=== PATIENT | male | born 1990 | race Caucasian/White ===

== ENCOUNTER 2019-08-07 10:38 | Emergency (ER) | payer OTHER, SELFPAY ==
[2019-08-07 11:13] LABS: Bilirubin Negative (Negative); Blood, Urine Negative (Negative); Clarity Clear (Clear); Glucose, Urine (Dipstick) Negative (Negative); Leukocyte Negative (Negative); Nitrite Negative (Negative); Protein, Urine (Dipstick) Negative (Neg-Trace); Urobilinogen 0.2 mg/dL (Less than 2)
[2019-08-07] MEDS ORDERED: Lidocaine 1% PF 5 ML VIAL ONE (11:50)
[2019-08-07] MEDS ORDERED: metroNIDAZOLE 500 MG TAB ONE (11:50)
[2019-08-07] MEDS ORDERED: cefTRIAXone\\ROCEPHIN 250 MG VIAL ONE (11:50)
[2019-08-07] MEDS ORDERED: Azithromycin 250 MG TAB ONE (11:50)
[2019-08-09 21:04] LABS: Chlam.trachomatis by PCR,Urine Not Detected (NotDetected)
== END 2019-08-07 12:00 | disposition home or self-care (01) ==
LOC: SCSER 10:38
DX: N48.89 Other specified disorders of penis (principal); F17.210 Nicotine dependence, cigarettes, uncomplicated
CPT/HCPCS: 81003; 87491; 87591; 96372; 99283; J0696; J2001

== ENCOUNTER 2021-08-05 04:26 | Emergency (ER) | payer SELFPAY | END 2021-08-05 05:02 | disposition home or self-care (01) | LOC: ERS 04:26 | DX: S90.421A Blister (nonthermal), right great toe, initial encounter (principal); L60.0 Ingrowing nail; F17.210 Nicotine dependence, cigarettes, uncomplicated; X58.XXXA Exposure to other specified factors, initial encounter | CPT/HCPCS: 99281 ==

== ENCOUNTER 2021-09-06 12:13 | Inpatient (IN) | payer OTHER ==
[2021-09-06] MEDS ORDERED: Ondansetron PF 4 MG/2 ML Vial IVP PRN (12:52)
[2021-09-06] MEDS ORDERED: TETANUS AND DIPHTHERIA TOX/PF 0.5 ML DISP.SYRIN IM ONE (12:52)
[2021-09-06] MEDS ORDERED: Dextrose 50% Abboject 50 ML SYRINGE SLOW IVP PRN (12:52)
[2021-09-06] MEDS ORDERED: hydrALAZINE 20 MG/ML VIAL SLOW IVP PRN (12:52)
[2021-09-06] MEDS ORDERED: Dextrose 5% in Water 1,000 ML IV PRN (12:52)
[2021-09-06] MEDS ORDERED: traMADol HCl 50 MG TAB PO PRN (12:55)
[2021-09-06] MEDS ORDERED: Acetaminophen 325 MG TAB PO SCH (13:00)
[2021-09-06] MEDS: Morphine 4 MG/ML VIAL SLOW IVP PRN (15:25)
[2021-09-06] MEDS: Gabapentin 300 MG CAP PO SCH ×2 (15:35→19:37)
[2021-09-06] MEDS: Sodium Chloride 0.9% 1,000 ML IV SCH (15:36)
[2021-09-06] MEDS: Acetaminophen 500 MG TAB PO SCH ×2 (15:37→19:38)
[2021-09-06] MEDS: traMADol HCl 50 MG TAB PO SCH (19:39)
[2021-09-06] MEDS: Famotidine/PF 20 mg/2ml Vial SLOW IVP SCH (19:40)
[2021-09-06 20:02] LABS: SARS-CoV-2 NAA Rapid Test Not Detected (NotDetected)
[2021-09-07] MEDS: traMADol HCl 50 MG TAB PO SCH ×4 (02:34→17:49)
[2021-09-07] MEDS: Acetaminophen 500 MG TAB PO SCH ×4 (02:35→17:48)
[2021-09-07] MEDS: Sodium Chloride 0.9% 1,000 ML IV SCH (02:38)
[2021-09-07] MEDS: Morphine 4 MG/ML VIAL SLOW IVP PRN (03:43)
[2021-09-07 05:59] LABS: #Basophils 0.1 thou/uL (0.0-0.2); #Eosinphils 0.1 thou/uL (0.0-0.7); #Lymphocytes 1.6 thou/uL (1.20-3.40); #Monocytes 0.7 thou/uL (0.11-0.59); #Neutrophils 5.4 thou/uL (1.40-6.50); %Basophils 0.6 % (0.0-1.0); %Eosinophils 0.8 % (0.0-10.0); %Lymphocytes 20.6 % (21.0-51.0); %Monocytes 9.4 % (0.0-10.0); %Neutrophils 68.6 % (42.0-75.0); Hemoglobin 13.8 g/dL (14.0-18.0); Mean Corpuscular HGB CONC 33.6 g/dL (32.0-36.0); Mean Corpuscular Hemoglobin 31.6 pg (27.0-31.0); Mean Corpuscular Volume 93.9 fL (78.0-98.0); Mean Platelet Volume 7.6 fL (7.4-10.4); Platelet Count 182 thou/uL (130-400); RBC Distribution Width 13.4 % (11.5-14.5); Red Blood Cell (RBC) Count 4.36 mill/uL (4.70-6.10); White Blood Cell (WBC) Count 7.9 thou/uL (4.8-10.8)
[2021-09-07 06:10] LABS: Albumin 3.6 g/dL (3.5-5.0)
[2021-09-07 06:13] LABS: Protein, Total 6.2 g/dL (6.0-8.3)
[2021-09-07 06:15] LABS: Bilirubin, Total 0.5 mg/dL (0.2-1.2)
[2021-09-07 06:16] LABS: Alkaline Phosphatase 44 U/L (40-110); Phosphorus 3.6 mg/dL (2.3-4.7)
[2021-09-07 06:18] LABS: AST (SGOT) 106 U/L (5-34); Anion Gap 11 mmol/L (10-20); BUN (Urea Nitrogen) 9 mg/dL (8.9-20.6); Bilirubin, Direct 0.2 mg/dL (0.1-0.3); Calc. Creatinine Clearance 169 mL/min (70-130); Calcium 9.1 mg/dL (7.8-10.44); Carbon Dioxide 27 mmol/L (22-29); Chloride 106 mmol/L (98-107); Glucose 89 mg/dL (70-105); Magnesium 2.2 mg/dL (1.6-2.6); Potassium 4.6 mmol/L (3.5-5.1); Sodium 139 mmol/L (136-145)
[2021-09-07 06:19] LABS: ALT (SGPT) 188 U/L (8-55)
[2021-09-07] MEDS ORDERED: traMADol HCl 50 MG TAB PO SCH (08:00)
[2021-09-07] MEDS: Famotidine/PF 20 mg/2ml Vial SLOW IVP SCH ×2 (08:50→21:17)
[2021-09-07] MEDS: Gabapentin 300 MG CAP PO SCH ×3 (08:51→21:17)
[2021-09-07] MEDS ORDERED: Cyclobenzaprine 10 MG TAB PO PRN (11:06)
[2021-09-07] MEDS ORDERED: hydrOXYzine Pamoate 25 mg Capsule PO PRN (11:07)
[2021-09-07] MEDS ORDERED: Ketorolac Tromethamine 30 MG/ML VIAL IVP SCH (13:00)
[2021-09-07] MEDS: traZODone HCl 50 MG TAB PO SCH (21:17)
[2021-09-07] MEDS: risperiDONE 3 MG TAB PO SCH (21:17)
[2021-09-08] MEDS: traMADol HCl 50 MG TAB PO SCH ×3 (06:12→11:57)
[2021-09-08] MEDS: Acetaminophen 500 MG TAB PO SCH ×4 (06:13→20:59)
[2021-09-08] MEDS: Gabapentin 300 MG CAP PO SCH ×3 (09:13→20:57)
[2021-09-08] MEDS: FLUoxetine HCl 10 MG CAP PO SCH (09:14)
[2021-09-08] MEDS ORDERED: Acetaminophen/Codeine 30-300mg Tablet PO PRN ×2 (12:10)
[2021-09-08] MEDS: Ibuprofen 600 MG TAB PO SCH ×2 (15:21→23:11)
[2021-09-08] MEDS: traZODone HCl 50 MG TAB PO SCH (20:57)
[2021-09-08] MEDS: Senokot S 8.6-50 MG TAB PO SCH (20:57)
[2021-09-08] MEDS: Famotidine 20 MG TAB PO SCH (20:57)
[2021-09-08] MEDS: risperiDONE 3 MG TAB PO SCH (21:25)
[2021-09-09] MEDS: Acetaminophen 500 MG TAB PO SCH ×3 (02:57→14:57)
[2021-09-09] MEDS: Ibuprofen 600 MG TAB PO SCH ×2 (07:16→15:00)
[2021-09-09] MEDS ORDERED: Polyethylene Glycol 3350 17 GM Packet PO SCH (09:00)
[2021-09-09 09:03] LABS: #Eosinphils 0.1 thou/uL (0.0-0.7); #Lymphocytes 1.1 thou/uL (1.20-3.40); #Monocytes 0.5 thou/uL (0.11-0.59); #Neutrophils 3.9 thou/uL (1.40-6.50); %Basophils 0.5 % (0.0-1.0); %Eosinophils 1.5 % (0.0-10.0); %Lymphocytes 20.1 % (21.0-51.0); %Monocytes 8.9 % (0.0-10.0); Hemoglobin 13.6 g/dL (14.0-18.0); Mean Corpuscular HGB CONC 32.3 g/dL (32.0-36.0); Mean Corpuscular Hemoglobin 30.3 pg (27.0-31.0); Mean Corpuscular Volume 93.9 fL (78.0-98.0); Mean Platelet Volume 7.6 fL (7.4-10.4); Platelet Count 184 thou/uL (130-400); Red Blood Cell (RBC) Count 4.47 mill/uL (4.70-6.10); White Blood Cell (WBC) Count 5.6 thou/uL (4.8-10.8)
[2021-09-09 09:24] LABS: Anion Gap 13 mmol/L (10-20); BUN (Urea Nitrogen) 10 mg/dL (8.9-20.6); Calc. Creatinine Clearance 160 mL/min (70-130); Calcium 9.4 mg/dL (7.8-10.44); Carbon Dioxide 28 mmol/L (22-29); Chloride 105 mmol/L (98-107); Glucose 68 mg/dL (70-105); Magnesium 2.1 mg/dL (1.6-2.6); Phosphorus 2.7 mg/dL (2.3-4.7); Potassium 4.7 mmol/L (3.5-5.1); Sodium 141 mmol/L (136-145)
[2021-09-09] MEDS: Gabapentin 300 MG CAP PO SCH ×2 (09:38→14:58)
[2021-09-09] MEDS: Senokot S 8.6-50 MG TAB PO SCH (09:39)
[2021-09-09] MEDS: FLUoxetine HCl 10 MG CAP PO SCH (09:39)
[2021-09-09] MEDS: Famotidine 20 MG TAB PO SCH (09:39)
[2021-09-09 15:34] VITALS: BP 130/76; TEMP 98.5
== END 2021-09-09 16:30 | disposition home or self-care (01) | DRG 201 ==
LOC: SJJU 12:32
PROVIDERS: ADMIT Surgery; ATTEND Surgery
PROC: 0WP9X0Z Removal of Drainage Device from Right Pleural Cavity, External Approach (ICD-10-PCS; principal; 2021-09-09)
DX: S27.0XXA Traumatic pneumothorax, initial encounter (principal); Z20.822 Contact with and (suspected) exposure to COVID-19; S00.03XA Contusion of scalp, initial encounter; V49.9XXA Car occupant (driver) (passenger) injured in unspecified traffic accident, initial encounter; F20.9 Schizophrenia, unspecified; F31.9 Bipolar disorder, unspecified; F17.210 Nicotine dependence, cigarettes, uncomplicated; Z56.0 Unemployment, unspecified
CPT/HCPCS: 36415; 71045; 80048; 80076; 83735; 84100; 85025; J1885; J2270; J7050; S0028; U0002